=== PATIENT | female | born 1970 | race Two or more races ===

== ENCOUNTER 2021-07-23 10:00 | Inpatient (IN) | payer OTHER ==
[~2021-07-23] VITALS: Ht 160 cm; Wt 70.3 kg
[2021-07-23] MEDS ORDERED: ZESTRIL40 M1 PO (11:19)
[2021-07-23] MEDS ORDERED: AMLODIPINE BESYL5 MG PO (11:21)
[2021-07-23] MEDS ORDERED: LIPITOR20 MG PO (11:21)
== END 2021-07-27 09:58 | disposition home or self-care (01) | DRG 743 ==
LOC: O/R 07-25 05:20 → LDR 07-25 07:00 → EDBD 07-25 10:00 → OB/GYN 07-25 11:45
PROVIDERS: ADMIT Obstetrics & Gynecology; ATTEND Obstetrics & Gynecology
PROC: 0UT20ZZ Resection of Bilateral Ovaries, Open Approach (ICD-10-PCS; 2021-07-25)
PROC: 0UT70ZZ Resection of Bilateral Fallopian Tubes, Open Approach (ICD-10-PCS; 2021-07-25)
PROC: 0UT90ZZ Resection of Uterus, Open Approach (ICD-10-PCS; principal; 2021-07-25 07:00)
DX: D25.1 Intramural leiomyoma of uterus (principal); N83.292 Other ovarian cyst, left side; N83.291 Other ovarian cyst, right side; N70.11 Chronic salpingitis; N83.8 Other noninflammatory disorders of ovary, fallopian tube and broad ligament; N72 Inflammatory disease of cervix uteri; N80.0 Endometriosis of uterus; I10 Essential (primary) hypertension; N93.8 Other specified abnormal uterine and vaginal bleeding